=== PATIENT | female | born 1990 | race Caucasian/White ===

== ENCOUNTER 2016-08-19 13:50 | Outpatient (CLI) ==
[2013-12-03 20:10] VITALS: BMI 41.2
[2016-08-19 17:14] LABS: BASOPHILS % (AUTO) 0.5 % (0.0-3.0); EOSINOPHILS # (AUTO) 0.1 K/ul (0.0-0.7); EOSINOPHILS % (AUTO) 1.8 % (0.0-7.0); HEMATOCRIT 40.1 % (37.0-47.0); HEMOGLOBIN 13.1 g/dl (12.0-16.0); IMMATURE GRANULOCYTE % (AUTO) 0.3 % (0.0-5.0); LYMPHOCYTES # (AUTO) 2.5 K/uL (0.60-3.4); LYMPHOCYTES % (AUTO) 31.5 (10.0-50.0); MEAN CORPUSCULAR HGB CONC 32.7 (31.8-35.4); MEAN CORPUSCULAR VOLUME 85.7 fl (81.0-99.0); MONOCYTES # (AUTO) 0.3 K/uL (0.4-2.0); MONOCYTES % (AUTO) 4.2 (0-10); NEUTROPHILS # (AUTO) 4.9 K/ul (2.0-6.9); NEUTROPHILS % (AUTO) 61.7; PLATELET COUNT 355 10^3/uL (140-440); RED BLOOD COUNT 4.68 10^6/ul (4.20-5.40); WHITE BLOOD COUNT 7.85 K/ul (4.6-10.2)
[2016-08-19 17:52] LABS: ALBUMIN 3.4 g/dL (3.4-5.0); ANION GAP 15.7; BILIRUBIN,TOTAL 0.3 mg/dL (0.00-1.20); BUN/CREATININE RATIO 10.52; CALCIUM 8.9 mg/dL (8.2-10.2); CREATININE 0.76 mg/dL (0.60-1.30); POTASSIUM 3.7 mmol/L (3.5-5.10); TOTAL PROTEIN 6.8 g/dL (6.4-8.2)
== END 2016-08-19 13:51 | disposition home or self-care (01) ==
LOC: LAB 13:50
PROVIDERS: ATTEND Nurse Practitioner Family
DX: Z00.00 Encounter for general adult medical examination without abnormal findings (principal); F39 Unspecified mood [affective] disorder; F41.9 Anxiety disorder, unspecified
CPT/HCPCS: 36415; 80053; 80061; 84443; 85025

== ENCOUNTER 2016-09-06 13:13 | Emergency (ER) ==
[2016-09-06 13:18] VITALS: BP 139/90; TEMP 101.7; BMI 44.9
[2016-09-06] MEDS ORDERED: NORCO 7.5-325 PO STA (13:42)
[2016-09-06 13:55] LABS: BASOPHILS % (AUTO) 0.3 % (0.0-3.0); EOSINOPHILS % (AUTO) 0.4 % (0.0-7.0); HEMATOCRIT 41.2 % (37.0-47.0); IMMATURE GRANULOCYTE % (AUTO) 0.3 % (0.0-5.0); LYMPHOCYTES # (AUTO) 0.5 K/uL (0.60-3.4); LYMPHOCYTES % (AUTO) 7.5 (10.0-50.0); MEAN CORPUSCULAR HEMOGLOBIN 28.1 pg (27.0-31.0); MEAN CORPUSCULAR VOLUME 82.7 fl (81.0-99.0); MONOCYTES # (AUTO) 0.4 K/uL (0.4-2.0); MONOCYTES % (AUTO) 5.8 (0-10); NEUTROPHILS # (AUTO) 5.9 K/ul (2.0-6.9); NEUTROPHILS % (AUTO) 85.7; PLATELET COUNT 226 10^3/uL (140-440); RED BLOOD COUNT 4.98 10^6/ul (4.20-5.40); WHITE BLOOD COUNT 6.91 K/ul (4.6-10.2)
[2016-09-06 14:21] LABS: ALBUMIN 3.9 g/dL (3.4-5.0); ALBUMIN/GLOBULIN RATIO 1.3; ANION GAP 10.9; BILIRUBIN,TOTAL 0.5 mg/dL (0.00-1.20); BUN/CREATININE RATIO 9.33; CREATININE 0.75 mg/dL (0.60-1.30); POTASSIUM 3.9 mmol/L (3.5-5.10); TOTAL PROTEIN 6.9 g/dL (6.4-8.2)
[2016-09-06 14:31] LABS: BILIRUBIN,URINE 1+ (NEGATIVE); KETONES,URINE Trace (NEGATIVE); LEUKOCYTE ESTERASE ,URINE 2+ (NEGATIVE); NITRITE,URINE Negative (NEGATIVE); PH,URINE 8.5 (5-9); PROTEIN,URINE 2+ (NEGATIVE); URINE, BLOOD 2+ (NEGATIVE)
[2016-09-06 14:33] LABS: FLU INTERNAL QC INTERNAL QC VALID; RAPID FLU A NEGATIVE (NEGATIVE); RAPID FLU B NEGATIVE (NEGATIVE)
[2016-09-06 14:34] LABS: ADD URINE MICROSCOPIC YES; BACTERIA,URINE 2+ (NOT PRESENT)
[2016-09-06 14:58] LABS: URINE PREGNANCY INTERNAL QC INTERNAL QC VALID
--- NOTE | 2016-09-06 15:10 | ED.PDOC ---
General ED Provider: Dr. RAUL PERSAUD Chief Complaint: Cough Stated Complaint: cough Time Seen by Physician: 13:30 (flu like symptoms) Mode of Arrival: Walk-In Information Source: Patient Exam Limitations: No limitations [facility] Nursing and Triage Documentation Reviewed and Agree: Yes Respiratory Complaint Exam - Respiratory Complaint/Exam Onset/Duration: 4 days Symptoms Are: Resolved Initial Severity: Moderate Current Severity: None Location: Throat, Chest Character: Reports: Non-productive cough Aggravating: Reports: None Alleviating: Reports: Spontaneous resolution Associated Signs and Symptoms: Reports: Nasal congestion, Sore throat. Denies: Rapid breathing, Dyspnea, Fever, Chills, Chest pain, Pleuritic chest pain, Wheezing, Hemoptysis, Dizziness, Calf pain, Calf swelling, Edema, URI, Hoarseness, Sinus discomfort, Vomiting, Weight loss, Decreased oral intake, Increased thirst, Increased appetite, Increased urination Related History: Reports: Similar episode History of Healthcare-Acquired Pneumonia: No Related Surgical History: Reports: None Pulmonary Embolism Risk Factors: None Cardiac Risk Factors: Reports: None Pseudomonas Risk Factors: Reports: None Tuberculosis Risk Factors: Reports: None Status Asthmaticus Risk Factors: Reports: None Home Oxygen Use: No Recent Stress Test: No Recent Echo/LV Function: No Current Antibiotic Use: No Current Asthma Medication Use: No Respiratory Distress: None Inadequate Respiratory Effort: No Dysphagia Present: No Stridor Present: No JVD Present: No Accessory Muscle Use: No Retractions: Not Present Diminished Breath Sounds: No Sinus Tenderness: None Grunting Respirations: No Kussmaul Respirations: No Differential Diagnoses: Pneumonia, Bronchitis Review of Systems - Review Of Systems Constitutional: Reports: Chills, Fever, Malaise Eyes: Reports: No symptoms Ears, Nose, Mouth, Throat: Reports: Throat pain Respiratory: Reports: Cough Cardiac: Reports: No symptoms GI: Reports: No symptoms : Reports: No symptoms Musculoskeletal: Reports: No symptoms Skin: Reports: No symptoms Neurological: Reports: No symptoms Endocrine: Reports: No symptoms Hematologic/Lymphatic: Reports: No symptoms All Other Systems: Reviewed and Negative Past Medical History - Past Medical History Previously Healthy: Yes Endocrine: Reports: None Cardiovascular: Reports: None Respiratory: Reports: None Hematological: Reports: None Gastrointestinal: Reports: None Genitourinary: Reports: None Neuro/Psych: Reports: None Musculoskeletal: Reports: None Cancer: Reports: None Last Menstrual Period: 08/19 - Surgical History General Surgical History: Reports: None - Family History Family History: Reports: None - Social History Smoking Status: Never smoker Hx Substance Use: No Alcohol Screening: None - Immunizations Tetanus Shot up to Date: Yes Physical Exam - Physical Exam Appearance: Well-appearing, No pain distress, Well-nourished Eyes: NAYANA, EOMI, Conjunctiva clear ENT: Ears normal, Nose normal, Oropharynx normal Respiratory: Airway patent, Breath sounds clear, Breath sounds equal, Respirations nonlabored Cardiovascular: RRR, Pulses normal, No rub, No murmur GI/: Soft, Nontender, No masses, Bowel sounds normal, No Organomegaly Musculoskeletal: Normal strength, ROM intact, No edema, No calf tenderness Skin: Warm, Dry, Normal color Neurological: Sensation intact, Motor intact, Reflexes intact, Cranial nerves intact, Alert, Oriented Psychiatric: Affect appropriate, Mood appropriate Critical Care Note - Critical Care Note Total Time (mins): 0 Course - Course Hematology/Chemistry: 09/06/16 13:50 09/06/16 13:50 Orders, Labs, Meds: Lab Review 09/06/16 09/06/16 09/06/16 13:30 13:50 14:20 WBC 6.91 RBC 4.98 Hgb 14.0 Hct 41.2 MCV 82.7 MCH 28.1 MCHC 34.0 RDW Coeff of [place] 13.0 Plt Count 226 Immature Gran % (Auto) 0.3 Neut % (Auto) 85.7 Lymph % (Auto) 7.5 L [place] % (Auto) 5.8 Eos % (Auto) 0.4 Baso % (Auto) 0.3 Immature Gran # (Auto) 0.0 Neut # 5.9 Lymph # 0.5 L [place] # 0.4 Eos # 0.0 Baso # 0.0 Sodium 136 Potassium 3.9 Chloride 103 Carbon Dioxide 26 Anion Gap 10.9 BUN 7 Creatinine 0.75 Estimated GFR (MDRD) 93.00 BUN/Creatinine Ratio 9.33 Glucose 96 Calcium 9.0 Total Bilirubin 0.50 AST 21 ALT 23 Alkaline Phosphatase 77 Total Protein 6.9 Albumin 3.9 Globulin 3.0 Albumin/Globulin Ratio 1.30 Urine Color Yellow Urine Clarity Clear Urine pH 8.5 Ur Specific [place] 1.020 Urine Protein 2+ Urine Glucose (UA) Negative Urine Ketones Trace Urine Blood 2+ Urine Nitrite Negative Urine Bilirubin 1+ Urine Urobilinogen 1.0 Ur Leukocyte Esterase 2+ Urine Microscopic RBC 5-10 Urine Microscopic WBC 50-100 Ur Squamous Epith Cells 5-10 Urine Bacteria 2+ Urine Test Influenza A (Rapid) Negative Influenza B (Rapid) Negative 09/06/16 14:34 WBC RBC Hgb Hct MCV MCH MCHC RDW Coeff of [place] Plt Count Immature Gran % (Auto) Neut % (Auto) Lymph % (Auto) [place] % (Auto) Eos % (Auto) Baso % (Auto) Immature Gran # (Auto) Neut # Lymph # [place] # Eos # Baso # Sodium Potassium Chloride Carbon Dioxide Anion Gap BUN Creatinine Estimated GFR (MDRD) BUN/Creatinine Ratio Glucose Calcium Total Bilirubin AST ALT Alkaline Phosphatase Total Protein Albumin Globulin Albumin/Globulin Ratio Urine Color Urine Clarity Urine pH Ur Specific [place] Urine Protein Urine Glucose (UA) Urine Ketones Urine Blood Urine Nitrite Urine Bilirubin Urine Urobilinogen Ur Leukocyte Esterase Urine Microscopic RBC Urine Microscopic WBC Ur Squamous Epith Cells Urine Bacteria Urine Test Negative Influenza A (Rapid) Influenza B (Rapid) Orders Category Date Time Status CBC W/ AUTO DIFF Stat LAB 09/06/16 13:50 Completed COMPREHENSIVE METABOLIC PANEL Stat LAB 09/06/16 13:50 Completed MOLECULAR GROUP A STREP Stat LAB 09/06/16 13:30 Results RAPID FLU A/B Stat LAB 09/06/16 13:30 Completed STREP SCREEN Stat LAB 09/06/16 13:30 Results UA [URINALYSIS C & S IF INDICATED] Stat LAB 09/06/16 14:20 Completed URINE CULTURE Stat LAB 09/06/16 14:20 Received URINE Stat LAB 09/06/16 14:34 Completed Hydrocodone Bit/Acetaminophen [[place] 7.5-325] MEDS 09/06/16 13:42 Discontinued 1 tab PO ONCE STA CHEST, 2 VIEWS PA & LAT Stat RADS 09/06/16 13:40 Ordered Medications Discontinued Medications Generic Name Dose Route Start Last Admin Trade Name Freq PRN Reason Stop Dose Admin Acetaminophen/Hydrocodone Bitart 1 tab 09/06/16 13:42 09/06/16 13:52 [place] 7.5-325 PO 09/06/16 13:43 1 tab ONCE STA Administration Vital Signs: Temp Pulse Resp BP Pulse Ox 09/06/16 13:15 101.7 F H 118 H 20 139/90 96 Departure - Departure Time of Disposition: 15:09 (seen with lucila) Disposition: HOME SELF-CARE Discharge Problem: Cough UTI (urinary tract infection) Qualifiers: Hematuria presence: without hematuria Instructions: Urinary Tract Infection in Women (ED), Acute Bronchitis (ED), Wheezing (ED), Bronchospasm (ED), How Your Lungs Work (ED) Condition: Good Pt referred to PMD for follow-up: No Additional Instructions: Please call your Family Physician as soon as possible to schedule a follow-up appointment. Prescriptions: Ciprofloxacin HCl [Cipro] 500 mg PO BID 10 Days Allergies/Adverse Reactions: Allergies No Known Allergies Allergy (Verified 12/03/13 20:08) Home Medications: Ambulatory Orders Norethindrone-E.estradiol-Iron [Microgestin Fe 1-20 Tablet] 1 each PO DAILY 09/13 Norethindrone-E.estradiol-Iron [Microgestin Fe 1-20 Tablet] 1 each PO DAILY Ciprofloxacin HCl [Cipro] 500 mg PO BID 10 Days 09/06/16
--- NOTE | 2016-09-06 15:32 | DI ---
EXAM: CHEST FRONTAL AND LATERAL VIEWS HISTORY: Cough. COMPARISON: None FINDINGS: Heart size and mediastinal contour within normal limits. No acute infiltrates. Kelli l vascularity with no pleural fluid or pneumothorax. The bony thorax has no acute finding. IMPRESSION: No acute process.
== END 2016-09-06 15:51 | disposition home or self-care (01) ==
LOC: ED 13:13
DX: N39.0 Urinary tract infection, site not specified (principal); J20.9 Acute bronchitis, unspecified
CPT/HCPCS: 36415; 80053; 81001; 81025; 85025; 87086; 87651; 87804; 87880; 99283

== ENCOUNTER 2016-11-21 09:44 | Outpatient (CLI) ==
--- NOTE | 2016-11-21 10:24 | DI ---
EXAM: LUMBAR SPINE 5 VIEWS HISTORY: Low back pain FINDINGS: Lumbar spine five views including bilateral obliques. Frontal view reveals possible subt le scoliosis convex to the right at the thoracolumbar junction estimated at about 4 degrees. Sacroi liac joints appear normal. Oblique views reveal no definite pars defect. Lateral view reveal mild anterior spondylolisthesis of L4 on L2 by about 0.37 cm. There is anterior spondylolisthesis of L5 on L4 by about 0.44 cm. There appears to be a regional mild facet arthropathy which may account for the listhesis. No loss of vertebral body height or notable degenerative disc disease. No fracture . IMPRESSION: Early facet arthropathy with some levels of listhesis as described. Possible mild scoli osis.
== END 2016-11-21 09:45 | disposition home or self-care (01) ==
LOC: RAD 09:44
PROVIDERS: ATTEND Nurse Practitioner Family
DX: M54.5 Low back pain (principal); E66.9 Obesity, unspecified

== ENCOUNTER 2017-12-21 16:12 | Emergency (ER) ==
[2017-12-21 16:19] VITALS: BP 114/79; TEMP 99.1; BMI 46.9
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
== END 2017-12-21 19:14 | disposition home or self-care (01) ==
LOC: ED 16:12
DX: S39.012A Strain of muscle, fascia and tendon of lower back, initial encounter (principal); S76.019A Strain of muscle, fascia and tendon of unspecified hip, initial encounter; V86.65XA Passenger of 3- or 4- wheeled all-terrain vehicle (ATV) injured in nontraffic accident, initial encounter; M43.16 Spondylolisthesis, lumbar region; F17.210 Nicotine dependence, cigarettes, uncomplicated
CPT/HCPCS: 81001; 81025; 87086; 99282

== ENCOUNTER 2018-07-12 09:40 | Outpatient (CLI) | END 2018-07-12 09:41 | disposition home or self-care (01) | LOC: RHC-LAB 09:40 | PROVIDERS: ATTEND Nurse Practitioner Family | DX: J02.9 Acute pharyngitis, unspecified (principal) | CPT/HCPCS: 87651 ==

== ENCOUNTER 2019-02-27 10:46 | Emergency (ER) ==
[2019-02-27 10:50] VITALS: BP 139/75; TEMP 98.2; BMI 46.5
--- NOTE | 2019-02-27 13:22 | ED.PDOC ---
General ED Provider: Dr. RAUL PERSAUD Chief Complaint: Headache Stated Complaint: HEADACHE MIGRANE TYPICAL HEADACHE FOR THE PT Time Seen by Physician: 11:00 Mode of Arrival: Walk-In Information Source: Patient Exam Limitations: No limitations Primary Care Provider: JANAK YEE Nursing and Triage Documentation Reviewed and Agree: Yes Does patient meet sepsis criteria?: No System Inflammatory Response Syndrome: Not Applicable Sepsis Protocol: For patient's 13 years and over: Temp is 96.8 and below OR 101 and greater Pulse >90 BPM Resp >20/minute Acutely Altered Mental Status Are patient's symptoms suggestive of a new infection, such as: -Pneumonia -Skin, Soft Tissue -Endocarditis -UTI -Bone, Joint Infection -Implantable Device -Acute Abdominal Infection -Wound Infection -Meningitis -Blood Stream Catheter Infection -Unknown Neurological Complaint Exam - Headache Complaint/Exam Onset: Gradual Duration: 2 DAYS Symptoms Are: Still present Timing: Constant Episodes Lasting: Hours Worst Headache Ever: No Initial Severity: Moderate Current Severity: Moderate Location: Right Character: Reports: Throbbing Aggravating: Reports: None Alleviating: Reports: None Associated Signs and Symptoms: Denies: Dizziness, Seizure, Nausea, Vomiting, Sinus pressure, Fever, Neck pain, Neck stiffness, Decreased LOC, Visual changes Related History: Reports: Similar episode Related Surgical History: Reports: None SAH Risk Factors: Reports: None Meningitis Risk Factors: Reports: None SDH Risk Factors: Reports: None Temporal Arteritis Risk Factors: Reports: Female, Normal Head CT Within Last 12 Months: Yes (MRI LAST MONTHWAS WNL PER PT REPORT) Fundoscopic Exam: Present: Normal Findings Papilledema Present: No Temporal Artery Tenderness: Present: None Sinus Tenderness: Present: None TMJ Tenderness: Present: None Glascow Coma Scale (see protocol): 15 Meningeal Signs Positive: No Pain on Passive Flexion-Positive Kernig's: No ROM Limited In: No Limitiations Focal Weakness: Present: None Focal Sensory Loss: Present: None Gait: Normal Nystagmus Present: No Gag Reflex Present: No Differential Diagnoses: Migraine Review of Systems - Review Of Systems Constitutional: Reports: No symptoms Eyes: Reports: No symptoms Ears, Nose, Mouth, Throat: Reports: No symptoms Respiratory: Reports: No symptoms Cardiac: Reports: No symptoms GI: Reports: No symptoms : Reports: No symptoms Musculoskeletal: Reports: No symptoms Skin: Reports: No symptoms Neurological: Reports: Headache Endocrine: Reports: No symptoms Hematologic/Lymphatic: Reports: No symptoms All Other Systems: Reviewed and Negative Past Medical History - Past Medical History Previously Healthy: Yes Endocrine: Reports: None Cardiovascular: Reports: None Respiratory: Reports: None Hematological: Reports: None Gastrointestinal: Reports: None Genitourinary: Reports: None Neuro/Psych: Reports: None Musculoskeletal: Reports: None Cancer: Reports: None Last Menstrual Period: spotting now - Surgical History General Surgical History: Reports: None - Family History Family History: Reports: None - Social History Smoking Status: Current every day smoker, Heavy tobacco smoker Hx Substance Use: No Alcohol Screening: Occasionally Physical Exam - Physical Exam Appearance: Well-appearing, No pain distress, Well-nourished Eyes: NAYANA, EOMI, Conjunctiva clear ENT: Ears normal, Nose normal, Oropharynx normal Respiratory: Airway patent, Breath sounds clear, Breath sounds equal, Respirations nonlabored Cardiovascular: RRR, Pulses normal, No rub, No murmur GI/: Soft, Nontender, No masses, Bowel sounds normal, No Organomegaly Musculoskeletal: Normal strength, ROM intact, No edema, No calf tenderness Skin: Warm, Dry, Normal color Neurological: Sensation intact, Motor intact, Reflexes intact, Cranial nerves intact, Alert, Oriented Psychiatric: Affect appropriate, Mood appropriate - NIH Stroke Scale 1a. Level of Consciousness: 0=Alert and keenly responsive 1b. Level of Consciousness Questions: 0=Answers correctly to two questions 1c. Level of Consciousness Commands: 0=Performs two tasks correctly 2. Best Gaze: 0=Normal 3. Visual: 0=No visual loss 4. Facial Palsy: 0=Normal 5a. Motor Left Arm: 0=No drift,arm holds 90 degrees for 10 sec., leg 30 degrees for 5 sec. 5b. Motor Right Arm: 0=No drift,arm holds 90 degrees for 10 sec., leg 30 degrees for 5 sec. 6a. Motor Left Le=No drift,arm holds 90 degrees for 10 sec., leg 30 degrees for 5 sec. 6b. Motor Right Le=No drift,arm holds 90 degrees for 10 sec., leg 30 degrees for 5 sec. 7. Limb Ataxia: 0=Absent Stroke Scale Total: 0 Critical Care Note - Critical Care Note Total Time (mins): 0 Course - Course Vital Signs: Temp Pulse Resp BP Pulse Ox 02/27/19 10:46 98.2 F 81 16 139/75 96 Departure - Departure Time of Disposition: 13:22 (SEEN WITH OLIVIA AT ALL TIMES ) Disposition: HOME SELF-CARE Discharge Problem: Headache Instructions: Migraine Headache (ED) Condition: Good Pt referred to PMD for follow-up: Yes IPMP verified?: No Additional Instructions: Please call your Family Physician as soon as possible to schedule a follow-up appointment. Allergies/Adverse Reactions: Allergies No Known Allergies Allergy (Uncoded 02/27/19 11:39) Home Medications: Ambulatory Orders Ibuprofen [Motrin] 600 mg PO Q6H PRN #40 tablet 12/21/17
== END 2019-02-27 13:42 | disposition home or self-care (01) ==
LOC: ED 10:46
DX: R51 Headache (principal); F17.210 Nicotine dependence, cigarettes, uncomplicated
CPT/HCPCS: 99282